=== PATIENT | male | born 1930 | race Caucasian/White ===

== ENCOUNTER 2019-03-08 06:58 | Day surgery (SDC) | payer MEDICARE ==
[~2019-03-08] VITALS: Ht 167.6 cm; Wt 65.9 kg
[2019-03-08 07:27] LABS: BASOPHILS 0.4 % (0-2); EOSINOPHILS 2.7 % (0-7); HEMATOCRIT 35.2 % (42.0-54.0); HEMOGLOBIN 12.2 g/dL (13.5-17.5); LYMPHOCYTES 25.6 % (15-50); MCH 32.2 pg (26.0-34.0); MCHC 34.7 g/dL (31.0-37.0); MCV 92.9 fL (80.0-100.0); MEAN PLATELET VOLUME 9.9 fL (7.4-10.4); MONOCYTES 11.5 % (2-11); NEUTROPHILS 59.8 % (40-80); PLATELET COUNT 182 10x3/uL (130-400); RBC 3.79 10x6/uL (4.20-6.10); RDW 14.3 % (11.5-14.5); WBC 5.1 10x3/uL (4.8-10.8)
[2019-03-08 07:38] LABS: CALC OSMOLALITY 283 mosm/kg (275-300); CALCIUM 8.6 mg/dL (8.5-10.1); CARBON DIOXIDE 29.9 mmol/L (21.0-32.0); CHLORIDE - SERUM 105 mmol/L (98-107); CREATININE - SERUM 0.9 mg/dL (0.6-1.3); GLUCOSE 98 mg/dL (74-106); POTASSIUM - SERUM 4.1 mmol/L (3.5-5.1); SODIUM 142 mmol/L (136-145); UREA NITROGEN 16 mg/dL (7-18); eGFR NON AFRICAN AMERICAN 84 mL/min (90-120)
[2019-03-08] MEDS ORDERED: NIFEDIPINE PO (08:37)
[2019-03-08] MEDS ORDERED: FLOMAX0.4 MG PO (08:41)
[2019-03-08] MEDS ORDERED: PEPCID AC20 MG PO (08:41)
[2019-03-08] MEDS ORDERED: STOOL SOFTENER100 M1 PO (08:42)
[2019-03-08 08:53] VITALS: BP 159/66; Ht 167.6 cm; Wt 65.9 kg
[2019-03-08] MEDS ORDERED: PROCARDIA XL30 MG PO (09:43)
--- NOTE | 2019-03-08 09:49 | NUR ---
0905 DR. JONAS VALDES.
--- NOTE | 2019-03-08 09:52 | NUR ---
0952 FL DIET SERVED.
--- NOTE | 2019-03-08 12:56 | OP ---
PATIENT NAME: BUNNY DEVLIN MEDICAL RECORD: [id number] :[birth year] LOCATION:[facility] ADMISSION DATE: SURGEON: GHASSAN MCDANIEL DO DATE OF OPERATION: 03/08/2019 PROCEDURE: EGD with biopsies and balloon dilation. INDICATIONS FOR PROCEDURE: Dysphagia, heartburn, left upper quadrant abdominal pain. SCOPE: Olympus video gastroscope. MEDICATIONS: Propofol 100 mg IV per anesthesia. ESTIMATED BLOOD LOSS: Minimal. COMPLICATIONS: None. FINDINGS: Informed consent was given. The patient was made comfortable with the above medication. After reaching an adequate level of sedation by slow IV push, the patient was placed in his left side. The endoscope was advanced under direct visualization through the mouth to the second portion of the duodenum with ease. The entire esophagus appeared normal. In the distal esophagus at the GE junction, there was evidence of mild reflux esophagitis along with a Schatzki ring just proximal to a small hiatal hernia. The Schatzki ring was dilated up to 18 mm maximum diameter using a CRE balloon without a guidewire. The maneuver was successful. The endoscope was advanced into the stomach and retroflexed to view the cardia, where a small sliding hiatal hernia was present. The fundus of the stomach appeared normal. In the body and antrum of the stomach, there were patchy areas of gastritis characterized by erythema and granularity as well as some congestion. Random cold forceps biopsies were taken from the antrum and incisura to submit for histopathology and to rule out the presence of H. pylori. The endoscope was advanced via the pylorus into the duodenum, which appeared normal down to the second portion. The endoscope was then withdrawn from the patient. The patient tolerated the procedure well and there were no complications. IMPRESSION: 1. Schatzki's ring dilated to 18 mm maximum diameter with a CRE balloon. 2. Small sliding hiatal hernia. 3. Gastritis. PLAN AND RECOMMENDATIONS: 1. Discharge home when recovery parameters are met. 2. Follow up biopsy specimen results. 3. Continue current diet. 4. Continue current medications. 5. Notify the clinic if symptoms worsen or fail to improve. TRANSINT:[id number] Voice Confirmation ID: [id number] DOCUMENT ID: [id number] OPERATIVE REPORT [id number] BUNNY DEVLIN GHASSAN MCDANIEL DO at [id number] CC: [id number] DICTATION DATE: 03/08/1924 BALANCE WEIGHER: 03/08/19 1143 [facility] 03/08/19 [facility] [address] [place] [address]
== END 2019-03-08 10:40 | disposition home or self-care (01) ==
LOC: D.OPS 06:58
PROVIDERS: Anesthesiology; ATTEND Internal Medicine Gastroenterology
DX: R13.10 Dysphagia, unspecified (principal); R12 Heartburn; K22.2 Esophageal obstruction; K44.9 Diaphragmatic hernia without obstruction or gangrene; K29.70 Gastritis, unspecified, without bleeding